=== PATIENT | male | born 1970 | race Caucasian/White ===

== ENCOUNTER → 2018-12-16 | Day surgery (SDC) | payer BC, OTHER ==
[2018-12-16] VITALS (9 sets, daily range): BP systolic 97–114; BP diastolic 46–66; PULSE 86–90; RESP 19–21
[~2018-12-16] VITALS: Ht 175.3 cm; Wt 98.4 kg
[~2018-12-16] MED LIST: ATOR40TA68 PO; DILT90TA PO; EPOE40002 SC; INSULIN; LABETALOL HCL 20MG INJ IV PRN; LEVA0.3112 INHALATION; LINA5TAB PO; METO-429 PO; NEPH PO; PANT20TA3 IV; PERIDEX; PROV100 PO; SERT25TA PO; hydrALAzine 20 MG INJ IV PRN
--- NOTE | 2018-12-16 12:47 | PREAC ---
Date/Time of Note Date/Time of Note DATE: 12/16/18 TIME: 12:43 Anesthesia Eval and Record Evaluation Time Pre-Procedure Interview DATE: 12/16/18 TIME: 12:43 Age 48 Sex male NPO: 8 hrs Preoperative diagnosis Bleeding Planned procedure EGD Past Medical History Past Medical History: Includes Cardio: HTN, Dyslipidemia Endo: Diabetes Pulm: Other (re) Neuro: CVA Renal: ESRD on dialysis Surgery & Anesthesia Issues No known issue Meds Anticoagulation: No Beta Krish within 24 hr: No Reason Beta Krish not given: Pt. not on B-Krish Meds reviewed: Yes Allergies Coded Allergies: No Known Allergy (Unverified , 12/13/18) Allergies Reviewed: Yes Labs/Studies Labs Reviewed: Reviewed by anesthesiologist test: N/A Studies: ECG (A-FIB) Pre-procedure Exam Airway: Adequate mouth opening Mallampati: Mallampati II Teeth: Normal Lung: Normal Heart: Normal ASA Physical Status ASA physical status: 4 Emergency: None Planned Anesthetic General/MAC: MAC Pre-operative Attestations Prior to commencing anesthesia and surgery, the patient was re-evaluated, there was verification of: *The patient's identity *The results of appropriate recent lab work and preoperative vital signs *The above evaluation not changing prior to induction *Anesthetic plan, risk benefits, alternative and complications discussed with patient/family; questions answered; patient/family understands, accepts and wishes to proceed. JACQUES SUN Dec 16, 2018 12:47
--- NOTE | 2018-12-16 13:14 | HPN ---
Date/Time of Note Date/Time of Note DATE: 12/16/18 TIME: 13:14 Interval H&P Admission Note Pt. seen H&P reviewed: No system changes SHAYLA PIEDRA MD Dec 16, 2018 13:14
--- NOTE | 2018-12-16 13:20 | PAC ---
Date/Time of Note Date/Time of Note DATE: 12/16/18 TIME: 13:19 Post-Anesthesia Notes Post-Anesthesia Note Activity: WNL Respiratory function: WNL Cardiovascular function: WNL Mental status: Baseline Pain reasonably controlled: Yes Hydration appropriate: Yes Nausea/Vomiting absent: Yes Comments BP96/57 HR 76 SpO2 100% temp 98.6 RR 16 JACQUES SUN Dec 16, 2018 13:20
== END | disposition home or self-care (01) ==
LOC: GIL 12:24
PROVIDERS: ATTEND Internal Medicine Gastroenterology
DX: K25.9 Gastric ulcer, unspecified as acute or chronic, without hemorrhage or perforation (principal); E78.5 Hyperlipidemia, unspecified; E11.9 Type 2 diabetes mellitus without complications; I12.0 Hypertensive chronic kidney disease with stage 5 chronic kidney disease or end stage renal disease; N18.6 End stage renal disease; Z99.2 Dependence on renal dialysis; Z86.73 Personal history of transient ischemic attack (TIA), and cerebral infarction without residual deficits

== ENCOUNTER → 2019-01-03 | Day surgery (SDC) | payer OTHER ==
[2019-01-03] VITALS (12 sets, daily range): BP systolic 90–133; BP diastolic 63–78; PULSE 88–108; RESP 18–22; Ht 175.3 cm; Wt 97.2 kg
[~2019-01-03] VITALS: Ht 175.3 cm; Wt 97.2 kg
[~2019-01-03] MED LIST changes: +CEFAZOLIN 1 GM INJ ONE; +DIPHENHYDRAMINE 50 MG INJ IV PRN; +ERTA1VIA3 IM; +FAMO20TA18 PO; +FENTAnyl 50 MCG/ML VIAL IV PRN; +FENTAnyl 50 MCG/ML VIAL ONE; +HEPARIN 1000 UNITS/ML 10 ML INJ ONE; +HYDROmorphONE 1 MG/5 ML IV SYRINGE IV PRN; -INSULIN; +IOHEXOL 300MG/ML 30 ML BTL ONE; -LABETALOL HCL 20MG INJ IV PRN; +LEVEM SQ; +LIDOCAINE 1% (MPF) 30 ML INJ ONE; +MIDAZOLAM 1 MG/ML 2 ML INJ ONE; +NPH,100V SC; +ONDANSETRON 4 MG INJ IV PRN; +ONDANSETRON 4 MG INJ ONE; +SEVOFLURANE 15 MIN ONE; -hydrALAzine 20 MG INJ IV PRN
--- NOTE | 2019-01-03 16:13 | HPN ---
Date/Time of Note Date/Time of Note DATE: 01/03/19 TIME: 16:13 Interval H&P Admission Note Pt. seen H&P reviewed: Systems changes noted below per JAYCE Oneal MD Jan 03, 2019 16:13
--- NOTE | 2019-01-03 16:22 | OPR ---
Date/Time of Note Date/Time of Note DATE: 01/03/19 TIME: 16:16 Operative Report Procedure Date: Jan 03, 2019 Preoperative Diagnosis End-stage renal disease on hemodialysis in need of permacath Postoperative Diagnosis Same Operation/Procedure Performed 1. Right internal jugular tunneled dialysis catheter insertion, permacath 2. Removal of right internal jugular Jesus, non-tunneled dialysis catheter 3. Local anesthetic [place], [id number] Surgeon Jayce Kent MD [employer] Operator Vonnie Montemayor NP Anesthesia Type: MAC (Local) Anesthesiologist: JOE FLORES DO Estimated Blood Loss: 0 - 10 ml's Transfusion none Specimen Jesus Grafts/Implants 14 Vietnamese permacath Tubes/Drains As above Complications none Pt Condition Post Procedure: stable Disposition: PACU (then [place]) Indications Renal failure in need of hemodialysis catheter Risks, benefits, and alternatives were fully explained to patient and family member and they agree to proceed with surgery. Risks include but are not limited to bleeding, hematoma, seroma, abscess, infection, DVT, malfunction of the catheter, nerve injury, hemothorax, pneumothorax, cardiac injury, tension pneumo, PA, PE, pneumonia, organ failures, need for emergent or delayed operation, need for chest tube placement, or . Procedure Description Patient was brought in to the operating room, placed on the OR table, SCDs were placed, preoperative antibiotics had been administered, all pressure points were well-padded, arms were tucked, and after induction of anesthesia, her right neck and chest were prepped and draped in usual sterile fashion and timeout was performed. Care was taken not to tent the patient. Local anesthetic was infiltrated at the right neck and chest areas. Wire was placed through the previous Jesus. Incision was made on the chest wall and the catheter was brought subcutaneously into the right neck incision site. Previous Jesus was removed. Introducer catheter was placed over the wire into the IJ. The wire was removed. Using Seldinger technique the catheter was placed over the introducer into the IJ. The introducer was extracted. There was complete hemostasis. Chest x-ray was done to identify the correct placement of the catheter. This was reviewed by myself and confirmed by radiologist. Both ports easily dropped back dark nonpulsatile blood and easy flush with hep saline. Then full strength heparin was instilled into the catheter as recommended with 1000 units per mL of heparin. Right neck incision was also closed with 4-0 Monocryl subcuticular technique. Line was secured with nylon. Dressing was applied. Dermabond was applied at site. Breath sounds and sats maintained. Postoperative chest x-ray would be obtained in recovery room. JAYCE KENT MD Jan 03, 2019 16:22
--- NOTE | 2019-01-03 16:53 | PREAC ---
Date/Time of Note Date/Time of Note DATE: 01/03/19 TIME: 16:47 Anesthesia Eval and Record Evaluation Time Pre-Procedure Interview DATE: 01/03/19 TIME: 16:46 Age 48 Sex male NPO: 8 hrs Preoperative diagnosis ESRD on HD Planned procedure Permacath placement Past Medical History Past Medical History: Includes Cardio: HTN, Dyslipidemia, CAD Endo: Diabetes Pulm: COPD, Other (respiratory insufficancy) Neuro: CVA Surgery & Anesthesia Issues No known issue Meds Anticoagulation: No Beta Krish within 24 hr: No Reason Beta Krish not given: Pt. not on B-Krish Active Scripts Insulin NPH Human Isophane (Humulin N) 100 Unit/1 Ml Vial, 55 UNIT SC Q8 for 30 Days, VIAL Prov:MARGY HERRERA MD 12/29/18 Ertapenem Sodium (Invanz) 1 Gm Vial, 1 GM IM DAILY for 5 Days, VIAL Prov:MARGY HERRERA MD 12/29/18 Reported Medications Insulin Detemir (Levemir) 100 Unit/1 Ml Vial, 8 SQ 01/03/19 Famotidine* (Famotidine*) 20 Mg Tablet, 20 MG PO DAILY, #30 TAB 01/03/19 Sertraline Hcl* (Zoloft*) 25 Mg Tablet, 25 MG PO DAILY, #30 TAB 12/16/18 Multivit/Ca Carb/B Cmplx/Fa* (Claire-Jenn*) 1 Tab Tab, 1 TAB PO DAILY, TAB 12/16/18 Modafinil* (Provigil*) 100 Mg Tablet, 100 MG PO DAILY, TAB 12/16/18 Metoprolol Tartrate* (Lopressor*) 50 Mg Tab, 50 MG PO BID, #60 TAB 12/16/18 Linagliptin (TRADJENTA) 5 Mg Tablet, 5 MG PO, TAB 12/16/18 Levalbuterol* (Xopenex*) 0.31 Mg/3 Ml Nebu, 0.63 MG INHALATION Q6H for WHEEZING AND SOB, EA 12/16/18 Epoetin laury* (Epogen*) 4,000 Unit/1 Ml Vial, [address]60 UNIT SC MONWED[place]RI, VIAL 12/16/18 Diltiazem Hcl* (Cardizem*) 90 Mg Tablet, 90 MG PO Q6, #120 TAB 12/16/18 [Peridex] No Conflict Check 12/16/18 Atorvastatin* (Atorvastatin*) 40 Mg Tablet, 20 MG PO QHS, #30 TAB 12/16/18 Discontinued Reported Medications Pantoprazole* (Pantoprazole*) 20 Mg Tablet.dr, 20 MG IV DAILY, TAB 12/16/18 [Insulin ] No Conflict Check 12/16/18 Meds reviewed: Yes Allergies Coded Allergies: No Known Allergy (Unverified , 01/03/19) Allergies Reviewed: Yes Labs/Studies Labs Reviewed: Reviewed by anesthesiologist test: N/A Studies: ECG Pre-procedure Exam Last vitals Vital Signs Date Temp Pulse Resp B/P (MAP) Pulse Ox O2 O2 Flow FiO2 Time Delivery Rate 01/03/19 97.7 88 18 122/78 100 12:25 (93) Airway: Adequate mouth opening, Adequate thyromental dist Mallampati: Mallampati III Teeth: Normal Lung: Abnormal (s/p Trach) Heart: Normal ASA Physical Status ASA physical status: 4 Emergency: None Planned Anesthetic General/MAC: Other (trach) Planned Pain Management Parenteral pain med Pre-operative Attestations Prior to commencing anesthesia and surgery, the patient was re-evaluated, there was verification of: *The patient's identity *The results of appropriate recent lab work and preoperative vital signs *The above evaluation not changing prior to induction *Anesthetic plan, risk benefits, alternative and complications discussed with patient/family; questions answered; patient/family understands, accepts and wishes to proceed. ABELARDO HERNANDEZ MD Jan 03, 2019 16:53
--- NOTE | 2019-01-03 17:59 | PAC ---
Date/Time of Note Date/Time of Note DATE: 01/03/19 TIME: 17:58 Post-Anesthesia Notes Post-Anesthesia Note Last documented vital signs Vital Signs Date Temp Pulse Resp B/P (MAP) Pulse Ox O2 O2 Flow FiO2 Time Delivery Rate 01/03/19 97.7 88 18 122/78 100 12:25 (93) Activity: WNL Respiratory function: WNL Cardiovascular function: WNL Mental status: Baseline Pain reasonably controlled: Yes Hydration appropriate: Yes Nausea/Vomiting absent: Yes Comments BP"109/70, P:92, Spo2:100%, T:98,8 ABELARDO HERNANDEZ MD Jan 03, 2019 17:59
== END | disposition home or self-care (01) ==
LOC: SDS 16:28
PROVIDERS: ATTEND Surgery
DX: Z45.2 Encounter for adjustment and management of vascular access device (principal); I12.0 Hypertensive chronic kidney disease with stage 5 chronic kidney disease or end stage renal disease; N18.6 End stage renal disease; I10 Essential (primary) hypertension; E78.5 Hyperlipidemia, unspecified; I25.10 Atherosclerotic heart disease of native coronary artery without angina pectoris; J44.9 Chronic obstructive pulmonary disease, unspecified; Z86.73 Personal history of transient ischemic attack (TIA), and cerebral infarction without residual deficits; E11.9 Type 2 diabetes mellitus without complications
CPT/HCPCS: 36581; 71047; 88300; C1752; J0690; J1644; J2250; J2405; J3010; Q9967